=== PATIENT | male | born 1975 | race Caucasian/White ===

== ENCOUNTER 2022-09-23 03:10 | Emergency (ER) | payer MEDICAID ==
[~2022-09-23] VITALS: Ht 170.2 cm; Wt 117.9 kg
[2022-09-23] MEDS ORDERED: BENZONATATE100 MG PO (04:24)
--- OUTSIDE RECORDS SUMMARY | 2022-09-23 04:54 | XMS ---
PreManage Notification: TONI LANDEROS Security Sole Layer Events No recent Security Events currently on file CRITERIA MET - [facility] - 2 Visits in 30 Days CARE PROVIDERS EUGENIE JOLLEY Clinic/Center: Federally Qualified 11/13/2019-[facility] ([facility] - PHONE: [phone] ZARA CRANE [employer]/Middle [employer] Director [facility] TEAM PHONE: [phone] Merle has no Care Guidelines for this patient. E.D. VISIT COUNT (12 MO.) 1 Prosper Ramirez [address] [place] [address] TOTAL 4 NOTE: Visits indicate total known visits. ED/UCC VISIT TRACKING (12 MO.) 09/23/2022 03:12 [facility] TYPE: Emergency COMPLAINT: - SHORTNESS OF BREATH [facility] COMPLAINT: - upper L abd pain DIAGNOSES: 1. Left upper quadrant pain 2. Contusion of left front wall of thorax, initial encounter 3. Nicotine dependence, cigarettes, uncomplicated 4. Unvaccinated for COVID-19 5. Exposure to other specified factors, initial encounter 6. Unspecified place or not applicable 08/26/2022 21:02 [facility] TYPE: Emergency COMPLAINT: - guerra, sob, cough DIAGNOSES: 1. Cough, unspecified 1. Viral infection, unspecified 2. Nicotine dependence, cigarettes, uncomplicated 3. Unvaccinated for COVID-19 4. Contact with and (suspected) exposure to COVID-19 12/29/2021 21:52 [facility] [place] TYPE: Emergency DIAGNOSES: - Laceration without foreign body of scalp, initial encounter - HEAD LAC INPATIENT VISIT TRACKING (12 MO.) No inpatient visits to display in this time frame [id number]
--- NOTE | 2022-09-23 15:20 | EKG ---
[facility] [address] [facility] [place] [address] Signed Normal sinus rhythm Normal ECG No previous ECGs available Confirmed by KELLY DUNCAN MD ([id number]) on 09/23/2022 3:20:42 PM Electronically Signed By: KELLY DUNCAN MD 09/23/22 1520 PATIENT NAME: TONI LANDEROS Electrocardiogram DATE OF : 71 PHYSICIAN: KELLY DUNCAN MD REPORT #: [id number] REPORT IS CONFIDENTIAL AND NOT TO BE RELEASED WITHOUT AUTHORIZATION
== END 2022-09-23 04:35 | disposition home or self-care (01) ==
LOC: ED 03:10
DX: J40 Bronchitis, not specified as acute or chronic (principal); Z20.822 Contact with and (suspected) exposure to COVID-19
CPT/HCPCS: 36415; 71045; 80053; 81001; 83735; 84484; 85025; 85730; 87502; 93005; 93010; 94640; 99285-25; U0003